=== PATIENT | female | born 1985 | race Caucasian/White ===

== ENCOUNTER 2024-10-30 13:16 | Emergency (ER) | payer OTHER ==
[~2024-10-30] VITALS: Ht 149.9 cm; Wt 72.1 kg
[2024-10-30 13:26] VITALS: O2SAT 100
[2024-10-30 14:24] LABS: BASOPHILS % 0.7 % (0.0-2.0); EOSINOPHILS % 1.2 % (0.0-5.0); HEMOGLOBIN. 12.6 g/dL (12.0-16.0); LYMPHOCYTES % 14.8 % (20.0-50.0); MEAN CORPUSCULAR HEMOGLOBIN 27.5 pg (28.0-32.0); MEAN CORPUSCULAR HGB CONC 33.1 g/dL (31.0-37.0); MEAN CORPUSCULAR VOLUME 83.1 fL (81.0-99.0); MEAN PLATELET VOLUME 7.7 fl (7.4-10.4); MONOCYTES % 6.6 % (2.0-8.0); NEUTROPHILS % 76.7 % (40.0-76.0); PLATELET 385 x1000/uL (130-400); RED BLOOD CELL COUNT 4.57 mill/uL (4.2-5.4); RED CELL DISTRIBUTION WIDTH 17.3 % (11.6-14.6); WHITE BLOOD COUNT 11.6 x1000/uL (4.5-11.0)
[2024-10-30 14:33] LABS: CHLORIDE 106 mEq/L (98-107); POTASSIUM 3.5 mEq/L (3.5-5.1); SODIUM 135 mEq/L (136-145)
[2024-10-30 14:34] LABS: CARBON DIOXIDE 18 mEq/L (21-32)
[2024-10-30 14:35] LABS: CALCIUM 8.6 mg/dL (8.7-10.4)
[2024-10-30 14:39] LABS: CREATININE 0.5 mg/dL (0.6-1.0); GLUCOSE 169 mg/dL (70-105); UREA NITROGEN BLOOD 9 mg/dL (9-23)
[2024-10-30 14:44] LABS: TROPONIN I HIGH SENSITIVITY < 4 ng/L (3.0-34)
[2024-10-30] MEDS: ACETAMINOPHEN 500MG TABLET PO ONE (15:17)
[2024-10-30 16:10] VITALS: BP 130/86; PULSE 103; RESP 20; TEMP 36.8; O2SAT 100
== END 2024-10-30 16:30 | disposition home or self-care (01) ==
LOC: ER 13:16
DX: R00.2 Palpitations (principal); I10 Essential (primary) hypertension; Z98.890 Other specified postprocedural states
CPT/HCPCS: 36415; 80048; 84484; 85025; 93005; 99284